=== PATIENT | female | born 1985 | race African-American/Black ===

== ENCOUNTER 2019-07-12 21:50 | Inpatient (IN) | payer SELFPAY ==
[2019-07-12 22:49] LABS: INR-International Normal Ratio 1.1; Prothrombin Time 13.7 SEC (12.0-14.7)
[2019-07-12 22:52] LABS: Mean Corpuscular HGB CONC 29.4 g/dL (32.0-36.0); Mean Corpuscular Hemoglobin 21.7 pg (27.0-31.0); Mean Corpuscular Volume 73.8 fL (78.0-98.0); Mean Platelet Volume 9.9 fL (7.4-10.4); PTT 19.2 SEC (22.9-36.1); Platelet Count 370 thou/uL (130-400); RBC Distribution Width 27.7 % (11.5-14.5); Red Blood Cell (RBC) Count 1.87 mill/uL (4.20-5.40); Reflex for Review?? YES; White Blood Cell (WBC) Count 6.4 thou/uL (4.8-10.8)
[2019-07-12 23:04] LABS: ALT (SGPT) 9 U/L (8-55); AST (SGOT) 9 U/L (5-34); Albumin 4.2 g/dL (3.5-5.0); Alkaline Phosphatase 54 U/L (40-150); Anion Gap 13 mmol/L (10-20); BUN (Urea Nitrogen) 6 mg/dL (7.0-18.7); Bilirubin, Total 0.3 mg/dL (0.2-1.2); Calc. Creatinine Clearance 0 mL/min (70-130); Calcium 9.3 mg/dL (7.8-10.44); Carbon Dioxide 23 mmol/L (22-29); Chloride 107 mmol/L (98-107); Estimated GFR-MDRD Greater than 90; Globulin 2.9 g/dL (2.4-3.5); Glucose 104 mg/dL (70-105); Potassium 3.7 mmol/L (3.5-5.1); Protein, Total 7.1 g/dL (6.0-8.3); Sodium 139 mmol/L (136-145)
[2019-07-12 23:05] LABS: #Eosinphils 0.2 thou/uL (0.0-0.7); #Lymphocytes 1.5 thou/uL (1.20-3.40); #Monocytes 0.4 thou/uL (0.11-0.59); #Neutrophils 4.4 thou/uL (1.40-6.50); %Basophils 0.4 % (0.0-1.0); %Eosinophils 2.7 % (0.0-10.0); %Lymphocytes 23.6 % (21.0-51.0); %Monocytes 5.4 % (0.0-10.0); %Neutrophils 67.9 % (42.0-75.0); Anisocytosis MODERATE=16-30 cells (100X) (0-5/hpf); BHCG - Serum Negative (NEGATIVE); Elliptocytes SLIGHT = 2-5 cells (100X) (0-1/hpf); Hypochromia SLIGHT = 6-15 cells (100X) (0-5/hpf); Large Platelets SLIGHT; MDiff Complete? YES; Microcytosis SLIGHT = 6-15 cells (100X) (0-5/hpf); Platelet Morphology Comment Appears Adequate; Polychromasia MODERATE = 3-4 cells (100X) (0-2/hpf); Pregs Control Background? CLEAR/WHITE (CLR/WHITE); Pregs Control Bar Appear? YES (CONTROL BAR); Tear Drops SLIGHT = 2-5 cells (100X) (0-1/hpf)
[2019-07-12] MEDS ORDERED: Tranexamic Acid 1,000 MG/10 ML VIAL ONE (23:34)
[2019-07-12] MEDS ORDERED: Estrogens, Conjugated 25 mg Vial SLOW IVP SCH (23:45)
[2019-07-13] MEDS ORDERED: Ondansetron PF 4 MG/2 ML Vial IVP PRN (00:59)
[2019-07-13] MEDS ORDERED: HYDROcodone/Acetaminophen 5/325 mg Tablet PO PRN ×2 (00:59)
[2019-07-13] MEDS ORDERED: Ondansetron ODT 4 MG TAB SL PRN (00:59)
[2019-07-13] MEDS ORDERED: Acetaminophen 325 MG TAB PO PRN (00:59)
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
[2019-07-13 01:26] LABS: Thyroid Stimulating Hormone 0.8568 uIU/mL (0.35-4.94)
[2019-07-13] MEDS ORDERED: Sterile Water 10 ML VIAL FS SCH (01:45)
[2019-07-13 02:54] VITALS: BMI 37.6
[2019-07-13] MEDS: Lactated Ringer's 1,000 ML IV SCH ×2 (06:15→08:19)
[2019-07-13] MEDS: Multivitamin W/ Minerals 1 TAB PO SCH (08:20)
[2019-07-13] MEDS: Famotidine 20 MG TAB PO SCH ×2 (08:20→19:44)
[2019-07-13] MEDS: Ferrous Sulfate 325 MG TAB PO SCH ×2 (08:20→17:21)
[2019-07-13] MEDS: medroxyPROGESTERone Acetate 5 MG TAB PO SCH (08:21)
[2019-07-13] MEDS: Docusate 100 MG CAP PO PRN ×2 (08:57→17:27)
[2019-07-13 11:12] LABS: Hemoglobin 5.8 g/dL (12.0-16.0)
--- NOTE | 2019-07-13 11:19 | PDOC.EVN ---
Event Note - Event Note Event Note: hgb 5.8 after 2U PRBC, will transfuse 1 U more of PRBC and re-check H/H in AM
[2019-07-13 11:34] LABS: INR-International Normal Ratio 1.1; PTT 24.8 SEC (22.9-36.1); Prothrombin Time 13.7 SEC (12.0-14.7)
[2019-07-13] MEDS: Ibuprofen 800 MG TAB PO SCH ×2 (11:37→17:22)
[2019-07-14] MEDS: Ibuprofen 800 MG TAB PO SCH ×3 (01:29→17:18)
[2019-07-14 05:59] LABS: Hemoglobin 7.1 g/dL (12.0-16.0); Mean Corpuscular Hemoglobin 25.9 pg (27.0-31.0); Mean Corpuscular Volume 81.1 fL (78.0-98.0); Mean Platelet Volume 9.6 fL (7.4-10.4); Platelet Count 269 thou/uL (130-400); RBC Distribution Width 22.6 % (11.5-14.5); Red Blood Cell (RBC) Count 2.75 mill/uL (4.20-5.40)
--- NOTE | 2019-07-14 06:18 | PDOC.FM ---
Addendum entered and electronically signed by Sunil Lopez DO 07/14/19 08 :31: Held home BP meds, BP lower end of normotension Original Note: - Subjective Subjective: Pt continues with bleeding. She states it has become worse with administration of blood products. She feels slightly better but remains fatigued, orthostatic hypotension. - Objective Vital Signs & Weight: Vital Signs (12 hours) Temp Pulse Resp BP Pulse Ox 07/14/19 04:04 98.2 F 71 16 102/55 L 100 07/13/19 22:33 99 07/13/19 18:39 97.3 F L 82 16 115/77 99 Weight Weight 122.4 kg I&O: 07/12/19 07/13/19 07/14/19 06:59 06:59 06:59 Intake Total 1750 2470 Balance 1750 2470 Result Diagrams: 07/14/19 04:59 07/12/19 22:19 Phys Exam - Physical Examination Constitutional: NAD HEENT: PERRLA, moist MMs mildly pale conjunctiva Respiratory: no wheezing, clear to auscultation bilateral Cardiovascular: RRR murmur appreciated over right second intercostal Gastrointestinal: soft, non-tender, no distention Musculoskeletal: no edema, pulses present Psychiatric: normal affect, A&O x 3 Dx/Plan (1) Symptomatic anemia Code(s): D64.9 - ANEMIA, UNSPECIFIED Status: Acute (2) Abnormal uterine bleeding (AUB) Code(s): N93.9 - ABNORMAL UTERINE AND VAGINAL BLEEDING, UNSPECIFIED Status: Chronic (3) HTN (hypertension) Code(s): I10 - ESSENTIAL (PRIMARY) HYPERTENSION Status: Chronic - Plan Plan: 33F with PMHx of HTN and severe anemia 2/2 abnormal uterine bleeding presents with fatigue and persistent bleeding for multiple months, with Hgb 4.0 on admission and 7.1, post 3 U RBC's. She previously had a TVUS in April 2019 on presentation with similar symptoms prompting an endometrial bx, negative for malignancy. At that time she was referred to GynSurg, appt schedule for 07/19. Pt could tolerate 1 more U RBC then potential discharge as she needs to be seen by GynSurg but has consistent bleeding, cont provera. Discussed case with Dr. Valentino on 07/13 and she agrees pt needs to be seen by outpt Restaurant Kitchen Manager Surg, recommended d/c with provera daily. # Symptomatic anemia H/H 4.0/13.8, H/H May 20 was 8.3/27.3. Spec Exam in ED revealed blood in vag vault. Hgb 7.1, post 3 U RBC - cont to monitor w/ repeat H/H today, she expressed heavy flow this morning but symptoms mildly improved. -VSS -type and cross, B+, antibody positive #AUB -TVUS on last admission:mildly prominent uterus 9.6x4.7x5.7cm, bilateral follicular cysts, heterogenous thickening of endometrium measuring 3.5-4cm -endometrial biopsy 05/20: benign inactive endometrial/endocervical tissue -Dr. Davalos rec repeat TVUS and possible hysteroscopy vs myomectomy, pt never had f/u appt but has appt 07/19 with Restaurant Kitchen Manager Surg -received TXA in ED -consider TELEPHONIC NURSE consult -encourage f/u outpatient #HTN -continue home meds Diet: regular DVT proph: SCDs GI proph: none Dispo: inpatient for blood transfusion and anemia monitoring Code: Full code Addendum - Attending - Attending Attestation Date/Time: 07/14/19 3406 I personally evaluated the patient and discussed the management with Dr. Lopez. I agree with the History, Examination, Assessment and Plan documented above with any addition or exceptions noted below. I am concerned that her H&H will continue to trend downward and will require further transfusion. We appreciate TELEPHONIC NURSE service expertise and care.
[2019-07-14] MEDS: Ferrous Sulfate 325 MG TAB PO SCH ×2 (08:27→17:18)
[2019-07-14] MEDS: medroxyPROGESTERone Acetate 5 MG TAB PO SCH ×2 (08:28→19:54)
[2019-07-14] MEDS: Multivitamin W/ Minerals 1 TAB PO SCH (08:28)
[2019-07-14] MEDS: Famotidine 20 MG TAB PO SCH ×2 (08:28→19:53)
[2019-07-14 14:40] LABS: Hemoglobin 6.4 g/dL (12.0-16.0)
[2019-07-14 15:00] LABS: Factor VIII Test 494.2 % ACTIVE (56-157)
[2019-07-14 15:51] LABS: DRVVT Confirm 38.1; DRVVT Ratio 0.9 Ratio (1.2 or Less); HEX PHOS LA Tube 1 43.2 SEC; HEX PHOS LA Tube 2 40.6 SEC; Hexagonal Phospholipid Neut 2.6 SEC (0-8.0)
[2019-07-14] MEDS ORDERED: Iron Sucrose Complex 500 MG in Sodium Chloride 0.9% 250 ML 250 ML IVPB SCH (16:00)
[2019-07-14] MEDS: Iron, Sodium Ferric Gluconate 250 MG in Sodium Chloride 0.9% 100 ML IVPB SCH (17:21)
[2019-07-14] MEDS: Docusate 100 MG CAP PO PRN (17:21)
[2019-07-14] MEDS: Tranexamic Acid 650 MG TAB PO SCH (19:53)
[2019-07-15] MEDS: Ibuprofen 800 MG TAB PO SCH ×3 (00:22→18:06)
[2019-07-15] MEDS: Iron, Sodium Ferric Gluconate 250 MG in Sodium Chloride 0.9% 100 ML IVPB SCH ×2 (05:47→18:05)
--- NOTE | 2019-07-15 06:48 | PDOC.FM ---
- Subjective Subjective: Pt has decreased bleeding this morning. Mother in room. Had good conversation. - Objective Vital Signs & Weight: Vital Signs (12 hours) Temp Pulse Pulse Resp BP BP Pulse Ox 07/15/19 04:12 98.5 F 79 18 114/71 100 07/15/19 00:39 97.8 F 74 18 102/67 99 07/15/19 00:26 97.8 F 74 18 102/67 07/14/19 21:46 99 07/14/19 21:31 98.0 F 77 18 109/69 07/14/19 19:06 97.9 F 75 16 108/74 99 Weight Weight 122.4 kg I&O: 07/13/19 07/14/19 07/15/19 06:59 06:59 06:59 Intake Total 1750 2920 1700 Balance 1750 2920 1700 Result Diagrams: 07/16/19 05:13 07/12/19 22:19 Phys Exam - Physical Examination Constitutional: NAD Respiratory: no wheezing, clear to auscultation bilateral Cardiovascular: RRR, no significant murmur Gastrointestinal: soft, no distention Musculoskeletal: no edema, pulses present Dx/Plan (1) Symptomatic anemia Code(s): D64.9 - ANEMIA, UNSPECIFIED Status: Acute (2) Abnormal uterine bleeding (AUB) Code(s): N93.9 - ABNORMAL UTERINE AND VAGINAL BLEEDING, UNSPECIFIED Status: Chronic (3) HTN (hypertension) Code(s): I10 - ESSENTIAL (PRIMARY) HYPERTENSION Status: Chronic - Plan Plan: 33F with PMHx of HTN and severe anemia 2/2 abnormal uterine bleeding presents with fatigue and persistent bleeding for multiple months, with Hgb 4.0 on admission and 7.1, post 3 U RBC's. She previously had a TVUS in April 2019 on presentation with similar symptoms prompting an endometrial bx, negative for malignancy. Initially though pt had an appt with meal temperer/surg which is not accurate. Pt is following up for a second opinion at [facility] with Dr. Sheth on 07/21. This is a difficult situation as pt does is self -pay making it difficult for pt to have surgical intervention. Spoke again with OBGYN, Dr. Peña, as bleeding increased, who recommended new therapy as below which has shown to help bleeding this am; if needed will follow up with OBGYN today. Will also discuss pt with Dr. Sheth, as pt will be following up in 6 days, will assess if there are any other interventions needed. Dr. Arthur and I spoke with pt and family about present situation, further discussion below. Discussed Repeat H/H 1400 today. # Symptomatic anemia H/H 4.0/13.8, H/H May 20 was 8.3/27.3. Spec Exam in ED revealed blood in vag vault. Hgb , post 4 U pRBC. - started provera 30 mg BID, Iron transfusions 500 mg x 2 (1 completed), TXA 1300 TID x 5 days (started 07/14) to achieve hemostasis -VSS -type and cross, B+, antibody positive #AUB -TVUS on last admission:mildly prominent uterus 9.6x4.7x5.7cm, bilateral follicular cysts, heterogenous thickening of endometrium measuring 3.5-4cm -endometrial biopsy 05/20: benign inactive endometrial/endocervical tissue -Dr. Davalos rec repeat TVUS and possible hysteroscopy vs myomectomy, pt never had f/u appt but has appt 07/19 with [facility] -received TXA in ED -encourage f/u outpatient - Dr. Arthur and I spoke with pt and family about present situation, as they were curious what interventions were being taken to give pt best treatment. Discussed the need to stop pt bleeding and to do this provera was increased, txa added. If we were to do more interventions at this time it would likely be surgery which holds the risk of infertility, pt and family were understanding but might need clarification again during stay. #HTN -continue home meds Diet: regular DVT proph: SCDs GI proph: none Dispo: inpatient for blood transfusion and anemia monitoring Code: Full code Addendum - Attending - Attending Attestation Date/Time: 07/16/19 1048 I personally evaluated the patient and discussed the management with Dr. Lopez. I agree with the History, Examination, Assessment and Plan documented above with any addition or exceptions noted below. Patient seems stable for discharge. Will continue TXA and Progesterone outpt. Has appt in 5 days with OBGYN.
[2019-07-15 08:23] LABS: #Basophils 0.1 thou/uL (0.0-0.2); #Eosinphils 0.3 thou/uL (0.0-0.7); #Lymphocytes 2.2 thou/uL (1.20-3.40); #Monocytes 0.4 thou/uL (0.11-0.59); #Neutrophils 5.4 thou/uL (1.40-6.50); %Basophils 0.7 % (0.0-1.0); %Eosinophils 3.6 % (0.0-10.0); %Lymphocytes 26.7 % (21.0-51.0); %Monocytes 4.5 % (0.0-10.0); %Neutrophils 64.5 % (42.0-75.0); Hemoglobin 7.2 g/dL (12.0-16.0); Hypochromia SLIGHT = 6-15 cells (100X) (0-5/hpf); MDiff Complete? YES; Mean Corpuscular HGB CONC 31.8 g/dL (32.0-36.0); Mean Corpuscular Volume 81.7 fL (78.0-98.0); Mean Platelet Volume 9.9 fL (7.4-10.4); Ovalocytes SLIGHT = 2-5 cells (100X) (0-1/hpf); Platelet Count 268 thou/uL (130-400); Platelet Morphology Comment Appears Adequate; Polychromasia MODERATE = 3-4 cells (100X) (0-2/hpf); RBC Distribution Width 21.9 % (11.5-14.5); Red Blood Cell (RBC) Count 2.78 mill/uL (4.20-5.40); White Blood Cell (WBC) Count 8.4 thou/uL (4.8-10.8)
[2019-07-15] MEDS: medroxyPROGESTERone Acetate 5 MG TAB PO SCH ×2 (08:27→20:01)
[2019-07-15] MEDS: Famotidine 20 MG TAB PO SCH ×2 (08:28→20:01)
[2019-07-15] MEDS: Multivitamin W/ Minerals 1 TAB PO SCH (08:28)
[2019-07-15] MEDS: Ferrous Sulfate 325 MG TAB PO SCH ×2 (08:28→18:06)
[2019-07-15] MEDS: Tranexamic Acid 650 MG TAB PO SCH ×3 (08:28→20:01)
[2019-07-15] MEDS: Docusate 100 MG CAP PO PRN (08:39)
[2019-07-15 14:32] LABS: Hemoglobin 7.2 g/dL (12.0-16.0)
[2019-07-16] MEDS: Ibuprofen 800 MG TAB PO SCH ×2 (00:49→08:44)
[2019-07-16] MEDS ORDERED: Iron Sucrose Complex 250 MG in Sodium Chloride 0.9% 250 ML 250 ML IVPB SCH (06:00)
[2019-07-16 06:05] LABS: #Basophils 0.1 thou/uL (0.0-0.2); #Eosinphils 0.3 thou/uL (0.0-0.7); #Lymphocytes 1.9 thou/uL (1.20-3.40); #Monocytes 0.5 thou/uL (0.11-0.59); #Neutrophils 6.6 thou/uL (1.40-6.50); %Basophils 0.6 % (0.0-1.0); %Eosinophils 2.7 % (0.0-10.0); %Lymphocytes 20.5 % (21.0-51.0); %Monocytes 4.9 % (0.0-10.0); %Neutrophils 71.3 % (42.0-75.0); Anisocytosis SLIGHT = 6-15 cells (100X) (0-5/hpf); Hemoglobin 7.5 g/dL (12.0-16.0); MDiff Complete? YES; Mean Corpuscular Volume 84.2 fL (78.0-98.0); Mean Platelet Volume 10.3 fL (7.4-10.4); Platelet Count 264 thou/uL (130-400); Platelet Morphology Comment Appears Adequate; RBC Distribution Width 23.3 % (11.5-14.5); Red Blood Cell (RBC) Count 2.79 mill/uL (4.20-5.40); White Blood Cell (WBC) Count 9.3 thou/uL (4.8-10.8)
--- NOTE | 2019-07-16 06:29 | PDOC.FM ---
- Subjective Subjective: Pt is doing well today. Bleeding is very light. - Objective Vital Signs & Weight: Vital Signs (12 hours) Temp Pulse Resp BP Pulse Ox 07/15/19 20:38 98.1 F 78 16 112/71 99 Weight Weight 122.4 kg I&O: 07/14/19 07/15/19 07/16/19 06:59 06:59 06:59 Intake Total 2920 1700 Balance 2920 1700 Result Diagrams: 07/16/19 05:13 07/12/19 22:19 Phys Exam - Physical Examination Constitutional: NAD HEENT: PERRLA, sclera anicteric Respiratory: clear to auscultation bilateral Cardiovascular: RRR, no significant murmur Gastrointestinal: soft, positive bowel sounds Neurological: non-focal, moves all 4 limbs Psychiatric: normal affect, A&O x 3 Dx/Plan (1) Symptomatic anemia Code(s): D64.9 - ANEMIA, UNSPECIFIED Status: Acute (2) Abnormal uterine bleeding (AUB) Code(s): N93.9 - ABNORMAL UTERINE AND VAGINAL BLEEDING, UNSPECIFIED Status: Chronic (3) HTN (hypertension) Code(s): I10 - ESSENTIAL (PRIMARY) HYPERTENSION Status: Chronic - Plan Plan: 33F with PMHx of HTN and severe anemia 2/2 abnormal uterine bleeding presents with fatigue and persistent bleeding for multiple months, with Hgb 4.0 on admission and 7.1, post 3 U RBC's. She previously had a TVUS in April 2019 on presentation with similar symptoms prompting an endometrial bx, negative for malignancy. Initially though pt had an appt with supervisory cbp officer/surg which is not accurate. Pt is following up for a second opinion at [facility] [place] with Dr. Sheth on 07/21. This is a difficult situation as pt does is self -pay making it difficult for pt to have surgical intervention. Spoke again with OBGYN, Dr. Peña, as bleeding increased, who recommended new therapy as below which has shown to help bleeding this am; if needed will follow up with OBGYN today. Will also discuss pt with Dr. Sheth, as pt will be following up in 6 days, will assess if there are any other interventions needed. Dr. Arthur and I spoke with pt and family about present situation, further discussion below. Hgb has remained stable for 24 hours. Will D/C and follow up appt with Dr. Sheth on Jul 21, if bleeding becomes heavier she will need to follow up earlier or return to hospital. TXA, Provera are affordable medications, can prescribe enough until appt with Dr. Sheth. Will attempt to update Dr. Sheth and will discuss plan with OBGYN hospitalist. # Symptomatic anemia H/H 4.0/13.8, H/H May 20 was 8.3/27.3. Spec Exam in ED revealed blood in vag vault. Hgb , post 4 U pRBC. - started provera 30 mg BID, Iron transfusions 500 mg x 2 (1 completed), TXA 1300 TID x 5 days (started 07/14) to achieve hemostasis -VSS -type and cross, B+, antibody positive #AUB -TVUS on last admission:mildly prominent uterus 9.6x4.7x5.7cm, bilateral follicular cysts, heterogenous thickening of endometrium measuring 3.5-4cm -endometrial biopsy 05/20: benign inactive endometrial/endocervical tissue -Dr. Davalos rec repeat TVUS and possible hysteroscopy vs myomectomy, pt never had f/u appt but has appt 07/19 with [facility] -received TXA in ED -encourage f/u outpatient - Dr. Arthur and I spoke with pt and family about present situation, as they were curious what interventions were being taken to give pt best treatment. Discussed the need to stop pt bleeding and to do this provera was increased, txa added. If we were to do more interventions at this time it would likely be surgery which holds the risk of infertility, pt and family were understanding but might need clarification again during stay. #HTN -continue home meds Diet: regular DVT proph: SCDs GI proph: none Dispo: inpatient for blood transfusion and anemia monitoring Code: Full code Addendum - Attending - Attending Attestation Date/Time: 07/16/19 0742 I personally evaluated the patient and discussed the management with Dr. Lopez. I agree with the History, Examination, Assessment and Plan documented above with any addition or exceptions noted below. Stable for discharge. Will follow up with AUTO COLLISION REPAIR INSTRUCTOR on Jul 21.
[2019-07-16] MEDS: Tranexamic Acid 650 MG TAB PO SCH ×2 (08:44→15:29)
[2019-07-16] MEDS: Ferrous Sulfate 325 MG TAB PO SCH (08:44)
[2019-07-16] MEDS: Multivitamin W/ Minerals 1 TAB PO SCH (08:44)
[2019-07-16] MEDS: Famotidine 20 MG TAB PO SCH (08:44)
[2019-07-16] MEDS: medroxyPROGESTERone Acetate 5 MG TAB PO SCH (08:56)
[2019-07-16] MEDS: Docusate 100 MG CAP PO PRN (08:56)
[2019-07-16 11:40] VITALS: BP 113/71; TEMP 98.1
[2019-07-16 17:35] LABS: Cardiolipin IgA Ab 1.4 APL-U/mL (<14 Negative); Cardiolipin IgG Ab Less than 0.5 GPL-U/mL (<10 Negative); EliA APS New Method **** NEW METHOD ****; beta-2-Glycoprotein I IgG Ab 1.2 U/mL (<7 Negative); beta-2-Glycoprotein I IgM Abs Less than 2.9 U/mL (<7 Negative)
--- NOTE | 2019-07-17 11:24 | DIS ---
DATE OF ADMISSION: 07/12/2019 DATE OF DISCHARGE: 07/16/2019 RESIDENT: Sunil Lopez DO ADMITTING ATTENDING: Edinson Briggs MD DISCHARGE ATTENDING: Mamadou Arthur MD CONSULTS: None. PROCEDURES: None. PRIMARY DIAGNOSES: 1. Abnormal uterine bleeding. 2. Symptomatic anemia. SECONDARY DIAGNOSES: None. DISCHARGE MEDICATIONS: 1. Provera 20 mg p.o. b.i.d. 2. Tranexamic acid 1300 mg t.i.d. for full course of 5 days of treatment. 3. Amlodipine 10 mg p.o. daily. 4. Hydrochlorothiazide 12.5 mg p.o. daily. 5. Ferrous sulfate 325 mg p.o. b.i.d. 6. Ibuprofen 600 mg p.o. q.6 hours p.r.n. for pain. . 7. Phenylephrine 2-3 sprays each nares q.4 hours p.r.n. 8. Safflower oil/linoleic acid. 9. Multivitamin one cap p.o. daily. DISCONTINUED MEDICATIONS: None. HISTORY OF PRESENT ILLNESS/HOSPITAL COURSE: Lorin Newman is a 33-year- old female, who presented with abnormal uterine bleeding and symptomatic anemia. She says her abnormal uterine bleeding has been going on for two years when she started taking OCP's. She stated in April of 2019, she was diagnosed with symptomatic anemia secondary to her uterine bleeding with a hemoglobin of 2.0. She was hospitalized at that time and transfused packed red blood cells. She also had a transvaginal ultrasound performed, which revealed endometrial thickening and bilateral follicular cyst. She was discharged to follow up with Dr. Davalos, who then performed an endometrial biopsy which revealed no hyperplasia, dysplasia or malignancy. Dr. Davalos performed another transvaginal ultrasound as she was not able to exclude uterine fibroids as she was scheduled to follow up with Dr. Sheth on 07/21/2019. This brings us to this admission, she was unable to make it to Dr. Sheth's appointment due to her anemia. She presented with a hemoglobin of 4.0. She was transfused 2 units of packed red blood cells. Repeat hemoglobin was 5.8. One more unit was transfused. After this third unit of packed red blood cells Hgb redraw was 7.1. Repeat Hgb 6.4 in afternoon, no resolution in bleeding. Pt was then started on Provera 20 mg BID, TXA 1300 mg TID x 5 days, 1 more U packed red blood cells per recommendation of OBGYN inpt service. Subsequently next day,07/15/2019, her hemoglobin was 7.2 and early afternoon recheck was stable at 7.2. Subjectively she felt the bleeding had decreased significantly as well so we decided to monitor for one more day. On the day of discharge, hemoglobin was 7.5. We felt comfortable discharging the patient at this time. I also contacted Dr. Sheth and discussed the case with her and the patient to be seen by Dr. Sheth in the clinic. Our main goal was to stop her uterine bleeding. This was done by the day of discharge and the patient felt comfortable going home as well. We did have a lengthy conversation with the patient concerning our abilities to stop the patient's bleeding as we were doing it hormonally and the only definitive way would likely be a surgical procedure. The patient and her family understood this, but they still might have questions in the future. Of note, we did give the patient 2 iron infusions. Likely the patient will continue to need these in the outpatient setting, also with a repeat ferritin level. She will follow up with Dr. Sheth on 07/21/2019. We encouraged her to follow up with her primary care physician, Dr. Rea within next couple of days. We also had case management meet with the patient due to her funding. This way she has avenues to pay for medications or possible procedures in the future. DISPOSITION: Stable. DISCHARGE INSTRUCTIONS: 1. Location: [facility]. 2. Diet: Ad roxanne. 3. Activity: Ad roxanne. 4. Followup: Follow up with Dr. Sheth on 07/21/2019. Follow up with PCP Dr. Rea within the next 7 days. Job ID: [id number]
== END 2019-07-16 16:21 | disposition home or self-care (01) | DRG 812 ==
LOC: ERS 21:50 → T4-B 23:53
PROVIDERS: ADMIT Student in an Organized Health Care Education/Training Program; ATTEND Student in an Organized Health Care Education/Training Program
PROC: 30233N1 Transfusion of Nonautologous Red Blood Cells into Peripheral Vein, Percutaneous Approach (ICD-10-PCS; principal; 2019-07-12)
DX: D64.9 Anemia, unspecified (principal); N93.9 Abnormal uterine and vaginal bleeding, unspecified; N83.02 Follicular cyst of left ovary; N83.01 Follicular cyst of right ovary; R93.89 Abnormal findings on diagnostic imaging of other specified body structures; I10 Essential (primary) hypertension; Z79.899 Other long term (current) drug therapy
CPT/HCPCS: 36415; 36430; 80053; 84443; 84703; 85014; 85018; 85025; 85027; 85240; 85246; 85250; 85598; 85610; 85613; 85730; 86146; 86147; 86850; 86870; 86880; 86900; 86901; 86922; J1410; J1756; J2916; J3490; J7050; P9016